=== PATIENT | female | born 1955 | race Two or more races ===

== ENCOUNTER 2021-02-05 06:23 | Inpatient (IN) | payer MEDICARE, OTHER ==
[~2021-02-05] VITALS: Ht 157 cm; Wt 70.1 kg
[2021-02-05 07:22] LABS: BASOPHILS ABSOLUTE AUTO 0.02 K/mm3 (0.00-0.23); BASOPHILS PERCENT AUTO 0 % (0-2); EOSINOPHILS ABSOLUTE AUTO 0.01 K/mm3 (0.00-0.68); EOSINOPHILS PERCENT AUTO 0 % (0-6); Hematocrit 42.5 % (33.0-51.0); Hemoglobin 14.4 g/dL (11.5-16.0); IMMATURE GRAN ABSOLUTE AUTO 0.02 K/mm3 (0.00-0.10); IMMATURE GRAN PERCENT AUTO 0 % (0-1); LYMPHOCYTES ABSOLUTE AUTO 0.67 K/mm3 (0.84-5.20); LYMPHOCYTES PERCENT AUTO 8 % (21-46); MONOCYTES ABSOLUTE AUTO 0.22 K/mm3 (0.16-1.47); MONOCYTES PERCENT AUTO 3 % (4-13); Mean Corpuscular HGB 30.1 pg (26.0-34.0); Mean Corpuscular HGB Conc 33.9 g/dL (31.5-36.5); Mean Corpuscular Volume 89 fL (80-100); Mean Platelet Volume 10.4 fL (9.1-12.4); NEUTROPHILS ABSOLUTE AUTO 7.45 K/mm3 (1.96-9.15); NEUTROPHILS PERCENT AUTO 89 % (41-73); Platelet Count 305 K/mm3 (150-400); RDW Coefficient Variation 12.8 % (11.7-14.2); RDW Standard Deviation 41.9 fL (35.1-46.3); Red Blood Cell Count 4.79 M/mm3 (3.80-5.20); White Blood Cell Count 8.39 K/mm3 (4.00-11.30)
[2021-02-05 07:44] LABS: Alanine Aminotransfer (ALT/SGP 67 U/L (12-78); Albumin, Blood 3.7 g/dL (3.4-5.0); Albumin/Globulin Ratio 0.9 (0.8-1.8); Alk Phos 105 U/L (50-136); Anion Gap 9 mmol/L (6-16); Aspartate Aminotrans (AST/SGOT 21 U/L (12-37); Bilirubin, Total 0.6 mg/dL (0.1-1.0); Blood Urea Nitrogen 13 mg/dL (8-24); Bun/Creatinine Ratio 22.1 (12.0-20.0); CO2, Blood 25 mmol/L (21-32); Calcium, Blood 9.4 mg/dL (8.5-10.1); Chloride, Blood 107 mmol/L (98-108); Creatinine, Blood 0.59 mg/dL (0.40-1.00); Globulin, Blood 4.2 g/dL (2.2-4.0); Glomerular Filtration Rate >60 (60-); Glucose, Blood 140 mg/dL (70-99); Potassium, Blood 3.5 mmol/L (3.5-5.5); Sodium, Blood 141 mmol/L (136-145); Total Protein, Blood 7.9 g/dL (6.4-8.2)
[2021-02-05 08:48] LABS: Source, Urine Clean Catch
[2021-02-05 08:56] LABS: Bilirubin, Urine Neg (Neg); Blood, Urine 2+ (Neg); Glucose Qualitative, Urine Neg (Neg); Ketones, Urine 2+ (Neg); Leukocyte Esterase, Urine 1+ (Neg); Nitrite, Urine Neg (Neg); Protein, Urine 1+ (Neg); Urobilinogen, Urine NORM (Normal)
[2021-02-05 09:12] LABS: Appearance, Urine Clear (Clear); Bacteria Few /hpf; Color, Urine Yellow (P-Yellow); Squamous Epithelial Cells Mod /hpf (Few); White Blood Cells, Urine 0-2 /hpf (0-5)
--- NOTE | 2021-02-05 10:04 | NUR ---
RECIEVED REPORT FROM JEAN-PAUL JUAREZ RN, @ 1000. PATIENT TO TRANSFER TO ROOM 339
--- NOTE | 2021-02-05 10:40 | NUR ---
PATIENT IS A PLEASANT FEMALE; ARRIVED TO ROOM 339 @ 1014 FROM THE ER. ADMITTED FOR SBO. WAS MEDICATED IN THE ER FOR ABDOMINAL PAIN AND N/V AND DENIES BOTH AT THIS TIME. ALERT AND ORIENTED. INDEPENDANT. DENIES PMH WITH THE EXCEPTION OF AN EPISODE OF SBO SEVEN YEARS AGO WHICH RESULTED IN A SURGERY TO REMOVE THE SCAR TISSUE WITHIN HER INTESTINES. PATIENT IS INDEPENDENT. ADMISSION COMPLETED. NO HOME MEDICATIONS. CALL LIGHT WITHIN REACH.
--- NOTE | 2021-02-05 15:18 | NUR ---
PATIENT IS PLEASANT AND COOPERATIVE WITH STAFF. AFTER COMPLETING THE ADMISSION AND ALLOWING THE PATIENT TO GET SETTLED IN SHE BECAME NAUSEAUS AND VOMITED. SHE STATED THAT SHE FELT A BIT BETTER AFTER VOMITING HOWEVER I STILL GAVE HER SOME IV ZOFRAN AND THAT SEEMED TO REALLY HELP. THE PATIENT IS NPO AND RECIEVING IV FLUIDS PER EMAR. VITALS ARE STABLE. PATIENT INDEPENDENT IN ROOM. CALLS FOR STAFF ASSIST APPROPRIATELY. CALL LIGHT WITHIN REACH. VISITOR AT BEDSIDE.
[2021-02-06 05:32] LABS: BASOPHILS ABSOLUTE AUTO 0.05 K/mm3 (0.00-0.23); BASOPHILS PERCENT AUTO 1 % (0-2); EOSINOPHILS ABSOLUTE AUTO 0.02 K/mm3 (0.00-0.68); EOSINOPHILS PERCENT AUTO 0 % (0-6); Hematocrit 39.3 % (33.0-51.0); Hemoglobin 12.9 g/dL (11.5-16.0); IMMATURE GRAN ABSOLUTE AUTO 0.03 K/mm3 (0.00-0.10); IMMATURE GRAN PERCENT AUTO 0 % (0-1); LYMPHOCYTES ABSOLUTE AUTO 1.29 K/mm3 (0.84-5.20); LYMPHOCYTES PERCENT AUTO 13 % (21-46); MONOCYTES ABSOLUTE AUTO 0.54 K/mm3 (0.16-1.47); MONOCYTES PERCENT AUTO 6 % (4-13); Mean Corpuscular HGB 29.9 pg (26.0-34.0); Mean Corpuscular HGB Conc 32.8 g/dL (31.5-36.5); Mean Corpuscular Volume 91 fL (80-100); Mean Platelet Volume 10.5 fL (9.1-12.4); NEUTROPHILS ABSOLUTE AUTO 7.97 K/mm3 (1.96-9.15); NEUTROPHILS PERCENT AUTO 81 % (41-73); Platelet Count 281 K/mm3 (150-400); RDW Coefficient Variation 13.1 % (11.7-14.2); RDW Standard Deviation 43.6 fL (35.1-46.3); Red Blood Cell Count 4.32 M/mm3 (3.80-5.20)
[2021-02-06 05:56] LABS: Alanine Aminotransfer (ALT/SGP 53 U/L (12-78); Albumin, Blood 3.4 g/dL (3.4-5.0); Albumin/Globulin Ratio 0.9 (0.8-1.8); Alk Phos 84 U/L (50-136); Anion Gap 6 mmol/L (6-16); Aspartate Aminotrans (AST/SGOT 15 U/L (12-37); Bilirubin, Total 0.6 mg/dL (0.1-1.0); Blood Urea Nitrogen 18 mg/dL (8-24); Bun/Creatinine Ratio 27.8 (12.0-20.0); CO2, Blood 28 mmol/L (21-32); Calcium, Blood 8.5 mg/dL (8.5-10.1); Chloride, Blood 110 mmol/L (98-108); Creatinine, Blood 0.65 mg/dL (0.40-1.00); Globulin, Blood 3.6 g/dL (2.2-4.0); Glomerular Filtration Rate >60 (60-); Glucose, Blood 110 mg/dL (70-99); Potassium, Blood 3.7 mmol/L (3.5-5.5); Sodium, Blood 144 mmol/L (136-145)
--- NOTE | 2021-02-06 06:05 | NUR ---
SHIFT SUMMARY PT IS A 66 Y/O FEMALE, ADMITTED FOR A SBO. SHE IS A&O X 4, INDEPENDENT TO THE BATHROOM. SHE WAS MEDICATED FOR ABD PAIN AND NAUSEA WITH PRN ZOFRAN AND FENTANYL. NO C/O SOB. RECEIVING NS @ 75 ML/HR. VITAL SIGNS STABLE. NO OTHER ACUTE CHANGES IN PT CONDITION NOTED. WILL CONTINUE TO MONITOR AND TREAT PER EMAR UNTIL HAND OFF TO DAY SHIFT RN.
--- NOTE | 2021-02-06 17:37 | NUR ---
SUMMARY PT SITTING UP IN BED WATCHING TV, FAMILY HAS BEEN IN TO VISIT, PT HAS BEEN PLEASANT AND COOPERATIVE WITH CARE T/O THE DAY, UP TO THE SHOWER AND UP WALKING IN THE HALLS, PT REPORTS PASSING SOME GAS, NO BM, BOWEL SOUNDS STILL DISTANT AND HYPOACTIVE, VSS, WILL CONT TO MONITOR
--- NOTE | 2021-02-07 06:38 | NUR ---
SHIFT SUMMARY PT IS A 66 Y/O FEMALE, ADMITTED FOR A SBO. SHE IS A&O X 4, INDEPENDENT IN THE ROOM. PT STATES SHE IS FEELING "MUCH BETTER", DENYING ANY ABD PAIN OR NAUSEA DURING THE NIGHT. SHE DID REPORT A MILD ROY, WHICH WAS REPORTED TO HOSPITALIST DR JOSEPH, AND PO TYLENOL ORDERED WHICH PT TOOK WITH NO ISSUES. NO C/O SOB. VITAL SIGNS STABLE. NO ACUTE CHANGES IN PT CONDITION NOTED DURING THE NIGHT. WILL CONTINUE TO MONITOR AND TREAT PER EMAR UNTIL HAD OFF TO DAY SHIFT RN.
--- NOTE | 2021-02-07 17:19 | NUR ---
SUMMARY PT SITTING UP IN BED WATCHING TV, PT HAS BEEN INDEPENDENT IN THE ROOM, PLEASANT AND COOPERATIVE WITH CARE, BOWEL SOUNDS PRESENT, PT REPORTS PASSING GAS, PT STARTED ON CLEAR LIQUID DIET, BALTAZAR WELL, NO COMPLAINTS OF PAIN OR NAUSEA T/O THE DAY, VSS, WILL CONT TO MONITOR
--- NOTE | 2021-02-08 06:37 | NUR ---
SHIFT SUMMARY PT IS A 66 Y/O FEMALE, ADMITTED FOR A SBO. SHE IS A&O X 4, INDEPENDENT IN THE ROOM. PT DENIED ANY C/O ABD PAIN OR NAUSEA DURING THE NIGHT, REPORTED THAT SHE IS PASSING GAS THOUGH NO BM YET. VITAL SIGNS STABLE. IV FLUIDS DC'D PER MD ORDER. PT TOLERATING CLEAR LIQUID DIET WELL. NO ACUTE CHANGES IN PT CONDITION NOTED DURING THE NIGHT. WILL CONTINUE TO MONITOR AND TREAT PER EMAR UNTIL HAND OFF TO DAY SHIFT RN.
--- NOTE | 2021-02-08 19:25 | NUR ---
PT RESTING IN BED AFTER DINNER. PT MAKES NO COMPLAINTS AT THIS TIME. IV SALINE LOCKED AND WNL. PT DIET WAS INCREASED FORM CLEAR LIQ TO FULL LIQ THIS SHIFT AND PT TOLLERATED WELL. PT HAD MED BM AND HAS GAS MOVEMENT. NO N/V AT THIS TIME. STAFF TO MONITOR FOR CHANGES AND POSSIBLE DC TOMORROW.
--- NOTE | 2021-02-09 06:35 | NUR ---
SHIFT SUMMARY PATIENT ALERT AND ORIENTED. HAD NO COMPLAINTS OF PAIN OR SHORTNESS OF BREATH. HAD MINIMAL NEEDS AND SLEPT WELL OVERNIGHT. BED IN LOWEST POSITION WITH WHEELS LOCKED. CALL LIGHT WITHIN REACH. REPORT GIVEN TO ONCOMING RN.
--- NOTE | 2021-02-09 15:37 | NUR ---
DISCHARGE PT DISCHARGED TO HOME. THIS RN EXPLAINED DISCHARGE INSTRUCTIONS AND PT REPORTS SHE UNDERSTANDS. PT INDEPENDENT TO PRIVATE VEHICLE. PT'S BELONGINGS WITH PT.
== END 2021-02-09 12:35 | disposition home or self-care (01) | DRG 390 ==
LOC: ER 06:23 → MEDS 06:24
PROVIDERS: Emergency Medicine; ADMIT Internal Medicine
DX: K56.51 Intestinal adhesions [bands], with partial obstruction (principal); E86.0 Dehydration; Z96.653 Presence of artificial knee joint, bilateral; K58.9 Irritable bowel syndrome, unspecified; Z98.890 Other specified postprocedural states; Z86.010 Personal history of colon polyps; Z90.49 Acquired absence of other specified parts of digestive tract
CPT/HCPCS: 36415; 74177; 80053; 81001; 83690; 85025; 87086; 96372; 96374-59; 96375; 96376; 99285-25; A9270; G0378; J1650; J2405; J3010; J7030; Q9967